=== PATIENT | male | born 1960 | race African-American/Black ===

== ENCOUNTER 2022-11-22 09:24 | Outpatient (CLI) | payer OTHER, MEDICAID | END 2022-11-22 09:25 | disposition home or self-care (01) | LOC: BICRAD 09:24 | PROVIDERS: ATTEND Student in an Organized Health Care Education/Training Program | DX: M54.50 Low back pain, unspecified (principal); M47.816 Spondylosis without myelopathy or radiculopathy, lumbar region | CPT/HCPCS: 72100 ==

== ENCOUNTER 2024-11-06 07:32 | Outpatient (CLI) | payer OTHER | END 2024-11-06 07:33 | disposition home or self-care (01) | LOC: CT 07:32 | PROVIDERS: ATTEND Family Medicine | DX: Z12.2 Encounter for screening for malignant neoplasm of respiratory organs (principal); Z87.891 Personal history of nicotine dependence | CPT/HCPCS: 71271 ==